=== PATIENT | male | born 1955 | race Caucasian/White ===

== ENCOUNTER 2019-05-21 08:31 | Outpatient (CLI) | payer MEDICARE, OTHER ==
[2019-05-21 12:52] LABS: BASOPHILS # (AUTO) 0.1 10^3/uL (0.0-0.1); BASOPHILS % (AUTO) 0.6 %; EOSINOPHILS # (AUTO) 0.3 10^3/uL (0.0-0.7); EOSINOPHILS % (AUTO) 3.6 %; HGB - HEMOGLOBIN 15.8 g/dL (14.0-18.0); LYMPHOCYTES # (AUTO) 2.6 10^3/uL (1.5-3.5); LYMPHOCYTES % (AUTO) 28.1 %; MEAN CORPUSCULAR HGB CONC 32.6 g/dL (32.0-36.0); MEAN PLATELET VOLUME 9.6 fL (7.4-11.4); MONOCYTES # (AUTO) 0.7 10^3/uL (0.0-1.0); MONOCYTES % (AUTO) 7.4 %; NEUTROPHILS # (AUTO) 5.6 10^3/uL (1.5-6.6); PLT - PLATELET COUNT 266 10^3/uL (130-450); RED BLOOD COUNT 5.26 10^6/uL (4.70-6.10); RED CELL DISTRIBUTION WIDTH 12.6 % (12.0-15.0); WHITE BLOOD COUNT 9.4 x10^3/uL (4.8-10.8)
[2019-05-21 14:44] LABS: CARBON DIOXIDE - CO2 25 mmol/L (21-32); CHLORIDE 104 mmol/L (101-111); SODIUM 139 mmol/L (135-145)
[2019-05-21 14:45] LABS: ALBUMIN 3.8 g/dL (3.2-5.5); ALBUMIN/GLOBULIN RATIO 1.1 (1.0-2.2); ALKALINE PHOSPHATASE 44 IU/L (42-121); ALT ALANINE AMINOTRANSFERASE 28 IU/L (10-60); AST ASPARTATE AMINOTRANSFERASE 24 IU/L (10-42); BILIRUBIN,TOTAL 0.8 mg/dL (0.2-1.0); BUN - BLOOD UREA NITROGEN 15 mg/dL (6-20); CALCIUM 8.8 mg/dL (8.5-10.3); CHOL/HDL RATIO 6.9 (<5.0); CHOLESTEROL 214 mg/dL; CREATININE 0.9 mg/dL (0.6-1.2); GFR - MDRD 85 (>89); GLUCOSE 118 mg/dL (70-100); HDL CHOLESTEROL 31 mg/dL; LDL CHOLESTEROL,CALCULATED 138 mg/dL; LDL/HDL RATIO 4.5 (<3.6); TOTAL PROTEIN 7.4 g/dL (6.7-8.2); VLDL CHOLESTEROL 45 mg/dL
== END 2019-05-21 23:59 | disposition home or self-care (01) ==
LOC: LAB.WCP 08:31
PROVIDERS: ATTEND Family Medicine
DX: R73.01 Impaired fasting glucose (principal); E78.5 Hyperlipidemia, unspecified; J84.9 Interstitial pulmonary disease, unspecified; Z12.5 Encounter for screening for malignant neoplasm of prostate
CPT/HCPCS: 36415; 80053; 80061; 85025; G0103; 83721; 84153

== ENCOUNTER 2019-05-22 13:02 | Outpatient (CLI) | payer MEDICARE, OTHER ==
[~2019-05-22 13:02] MED LIST: ALBUTEROL NEB 2.5 MG/3 ML INH SCH
== END 2019-05-22 13:03 | disposition home or self-care (01) ==
LOC: RT 13:02
PROVIDERS: ATTEND Family Medicine
DX: J84.9 Interstitial pulmonary disease, unspecified (principal)
CPT/HCPCS: 94010; 94729

== ENCOUNTER 2019-05-30 | Outpatient (CLI) | payer MEDICARE, OTHER | END 2019-05-30 11:52 | disposition home or self-care (01) | DX: J84.9 Interstitial pulmonary disease, unspecified (principal); R91.1 Solitary pulmonary nodule | CPT/HCPCS: 71250 ==

== ENCOUNTER 2024-06-28 11:45 | Outpatient (CLI) | payer MEDICARE, OTHER ==
[2024-06-28 12:12] LABS: CREATININE 0.8 mg/dL (0.6-1.3)
[2024-06-28] MEDS ORDERED: iohexoL-300 100 ML VIAL ONE (12:32)
--- NOTE | 2024-06-28 13:47 | CT Report ---
PROCEDURE: Soft Tissue Neck W INDICATIONS: MANDIBLE MASS CONTRAST: Omni 300 100ml TECHNIQUE: After the administration of intravenous contrast, 3.0 mm axial sections acquired from the sella to th e aortic arch. Additional oblique axial 3.0 mm sections acquired through the pharynx. 3 mm thick co aureliano reformats were generated. For radiation dose reduction, the following was used: automated exp osure control, adjustment of mA and/or kV according to patient size. COMPARISON: None. FINDINGS: Image quality: Excellent. Lymph nodes: No enlarged lymph nodes seen throughout the neck. Vessels: Visualized vasculature appears patent. Neck spaces: The oropharynx, nasopharynx, and pharynx demonstrate no mucosal lesions. The vocal cor ds, false vocal cords, pyriform sinuses, epiglottis, vallecula, and tongue base all appear normal. E xtramucosal spaces appear unremarkable. Glands: Right intraparotid mass measuring 2.5 x 1.9 cm (2/43). Posterior versus within the deep aspec t of the left parotid gland, there is an enhancing lesion measuring 1.6 x 0.8 cm (2/25). The left sub mandibular gland appear normal. The right subclavian line is atrophic. The thyroid is normal in size and there are no incidental findings. Miscellaneous: Visualized brain and orbits appear normal. Subpleural reticulations are noted within the lung apices, consistent with fibrotic changes. Prominent and enlarged hilar lymph nodes, for exam ple a 1.2 cm right hilar lymph node (2/105).. Superficial soft tissues appear normal. Bones: No suspicious bony lesions. Degenerative changes of the spine. Visualized sinuses and mastoi ds appear unremarkable. IMPRESSION: 1.Right intraparotid mass measures 2.5 cm. Differential includes primary parotid neoplasm versus lymp h node. Consider tissue sampling for further evaluation. 2.Additional enhancing lesion measuring 1.6 cm which is either just deep to or within the left paroti d gland. Differential includes primary parotid neoplasm versus lymph node. 3.Prominent and mildly enlarged hilar lymph nodes are nonspecific and may be reactive, metastatic lym phadenopathy is not excluded. Consider dedicated CT chest with contrast for further evaluation. CLINICAL RECOMMENDATION STATEMENTS: In patients <35 years with an ITN detected on CT, MRI, or extrathyroidal ultrasound, the Committee re commends further evaluation with dedicated thyroid ultrasound if the nodule is "e1 cm and has no susp icious imaging features, and if the patient has normal life expectancy. In patients "e35 years with an ITN detected on CT, MRI, or extrathyroidal ultrasound, the Committee r ecommends further evaluation with dedicated thyroid ultrasound if the nodule is "e1.5 cm and has no s uspicious imaging features, and if the patient has normal life expectancy. (ACR, 2014) Reviewed by: Ezekiel Whitley MD on 06/28/2024 1:45 PM PDT Approved by: Ezekiel Whitley MD on 06/28/2024 1:45 PM PDT Station ID: [id number]
[2024-06-28] MEDS: iohexoL-300 100 ML VIAL IVP ONE (14:27)
== END 2024-06-28 11:46 | disposition home or self-care (01) ==
LOC: DI 11:45
PROVIDERS: ATTEND Internal Medicine
DX: K11.8 Other diseases of salivary glands (principal); R59.0 Localized enlarged lymph nodes
CPT/HCPCS: 36415; 70491; 82565; Q9967

== ENCOUNTER 2024-07-06 13:57 | Outpatient (CLI) | payer MEDICARE, OTHER ==
[2024-07-06 17:49] LABS: BASOPHILS # (AUTO) 0.1 10^3/uL (0.0-0.1); BASOPHILS % (AUTO) 0.7 %; EOSINOPHILS # (AUTO) 0.2 10^3/uL (0.0-0.7); EOSINOPHILS % (AUTO) 2.7 %; HCT - HEMATOCRIT 46.3 % (42.0-52.0); HGB - HEMOGLOBIN 15.1 g/dL (14.0-18.0); LYMPHOCYTES # (AUTO) 2.4 10^3/uL (1.5-3.5); LYMPHOCYTES % (AUTO) 29.4 %; MEAN CORPUSCULAR HEMOGLOBIN 29.8 pg (27.0-31.0); MEAN CORPUSCULAR HGB CONC 32.6 g/dL (32.0-36.0); MEAN CORPUSCULAR VOLUME 91.3 fL (80.0-94.0); MEAN PLATELET VOLUME 10.1 fL (7.4-11.4); MONOCYTES # (AUTO) 0.6 10^3/uL (0.0-1.0); MONOCYTES % (AUTO) 6.8 %; NEUTROPHILS # (AUTO) 4.9 10^3/uL (1.5-6.6); NEUTROPHILS % (AUTO) 60.2 %; PLT - PLATELET COUNT 301 10^3/uL (130-450); RED BLOOD COUNT 5.07 10^6/uL (4.70-6.10); RED CELL DISTRIBUTION WIDTH 12.6 % (12.0-15.0); WHITE BLOOD COUNT 8.2 x10^3/uL (4.8-10.8)
[2024-07-06 18:13] LABS: CALCIUM 9.2 mg/dL (8.5-10.3); CREATININE 0.8 mg/dL (0.6-1.3); CRP - C-REACTIVE PROTEIN 0.7 mg/dL (<0.5); POTASSIUM 4.3 mmol/L (3.5-4.5)
== END 2024-07-06 13:58 | disposition home or self-care (01) ==
LOC: LAB.N 13:57
PROVIDERS: ATTEND Internal Medicine
DX: K11.8 Other diseases of salivary glands (principal); R59.0 Localized enlarged lymph nodes
CPT/HCPCS: 36415; 80048; 81599; 82164; 83615; 85025; 85651; 86140

== ENCOUNTER 2024-07-13 12:38 | Outpatient (CLI) | payer MEDICARE, OTHER ==
[2024-07-13] MEDS ORDERED: iohexoL-300 100 ML VIAL ONE (12:53)
--- NOTE | 2024-07-13 16:48 | CT Report ---
PROCEDURE: Chest W INDICATIONS: HILAR ADENOPATHY CONTRAST: omni, 100 TECHNIQUE: After the administration of intravenous contrast, a CT scan of the chest was performed. Images were recorded and evaluated at appropriate window settings. Reformats: axial MIP of the chest, coronal and sagittal. For radiation dose reduction, the following was used: automated exposure control, adjustme nt of mA and/or kV according to patient size. COMPARISON: CT chest dated 05/30/2019. CT neck soft tissue dated the 2923 FINDINGS: Image quality: Diagnostic. Chest wall and lower neck: No thyroid nodule which requires sonographic follow up. No breast mass. No axillary or supraclavicular adenopathy by size. Lungs and pleura: There is mild to moderate centrilobular emphysema. Biapical scarring is seen. Retic ulonodular thickening in periphery of bilateral lung duong are seen with honeycombing concerning for interstitial pulmonary fibrosis. No suspicious pulmonary nodule is seen. Stable 4 mm solid nodule is again seen in lateral aspect of right lower lobe unchanged from 2019 study. No consolidation. No ple ural effusions. No pneumothorax. No suspicious pulmonary nodules which require follow up. Mediastinum: Heart size is normal. No pericardial effusion. No large vessel abnormality. Borderline-e nlarged mediastinal lymph nodes measures up to 1 cm in right paratracheal space. Prominent right christa r lymph nodes are again seen measures up to 1.2 cm in short axis diameter series 2 image 46 unchanged from recent neck soft tissue CT study. Subcentimeter lymph nodes are seen in left hilar region measu res up to 9 mm in short axis diameter series 2 image 55. Bones: No aggressive osseous abnormality. Upper Abdomen: Unremarkable. IMPRESSION: 1. Nonspecific prominent mediastinal or hilar lymph nodes as described above and may be reactive in n ature. 2. Mild to moderate centrilobular emphysema with interstitial pulmonary fibrosis progressed since 201 9 study. 3. Stable 4 mm solid nodule in right lower lobe likely represent benign process. No new pulmonary nod ule requires CT follow-up. 4. No pleural effusion or pneumothorax. Airway is patent. Reviewed by: Romel Nassar MD on 07/13/2024 4:47 PM PDT Approved by: Romel Nassar MD on 07/13/2024 4:47 PM PDT Station ID: [id number]
[2024-07-13] MEDS: iohexoL-300 100 ML VIAL IVP ONE (17:50)
== END 2024-07-13 12:39 | disposition home or self-care (01) ==
LOC: DI 12:38
PROVIDERS: ATTEND Internal Medicine
DX: R59.0 Localized enlarged lymph nodes (principal); J43.2 Centrilobular emphysema; J84.10 Pulmonary fibrosis, unspecified; R91.1 Solitary pulmonary nodule
CPT/HCPCS: 71260; Q9967